=== PATIENT | male | born 1955 | race African-American/Black ===

== ENCOUNTER 2017-01-28 10:40 | Emergency (ER) | payer MEDICARE, MEDICAID ==
[~2017-01-28] VITALS: Ht 188 cm; Wt 91.0 kg
[~2017-01-28 10:40] MED LIST: ASPI81TA2 PO; ATOR20TA65 PO; COR6 PO; FURO20TA4 PO; GABA100C PO; LINA5TAB PO; LISI-604 PO; METF1000 PO; POTA20TA82 PO; SILV20CR15 TP
[2017-01-28 10:49] VITALS: BP 109/70
== END 2017-01-28 16:29 | disposition home or self-care (01) ==
LOC: ER 10:41
DX: S16.1XXA Strain of muscle, fascia and tendon at neck level, initial encounter (principal); E11.9 Type 2 diabetes mellitus without complications; J44.9 Chronic obstructive pulmonary disease, unspecified; F17.200 Nicotine dependence, unspecified, uncomplicated; I11.0 Hypertensive heart disease with heart failure; Z79.82 Long term (current) use of aspirin; Z79.899 Other long term (current) drug therapy; V49.60XA Unspecified car occupant injured in collision with unspecified motor vehicles in traffic accident, initial encounter; Y93.89 Activity, other specified; Y99.8 Other external cause status; Y92.410 Unspecified street and highway as the place of occurrence of the external cause
CPT/HCPCS: 72125; 99284

== ENCOUNTER 2018-06-26 17:37 | Inpatient (IN) | payer MEDICARE, MEDICAID ==
[~2018-06-26] VITALS: Ht 182.9 cm; Wt 98.4 kg
[~2018-06-26 17:37] MED LIST changes: +ASPI-1160 PO; -ASPI81TA2 PO; +SILV20CR13 TP; -SILV20CR15 TP
[2018-06-26] MEDS ORDERED: FUROSEMIDE 40MG/4ML VIAL IV ONE (18:15)
[2018-06-26] MEDS ORDERED: NITROGLYCERIN OINT 1GM/INCH UDPKT TD ONE (18:15)
[2018-06-26 19:06] LABS: HEMATOCRIT. 43.8 % (42.0-52.0); HEMOGLOBIN. 14.4 g/dL (14.0-18.0); MEAN CORPUSCULAR HEMOGLOBIN 27.2 pg (28.0-32.0); MEAN CORPUSCULAR VOLUME 82.8 fL (80.0-94.0); MEAN PLATELET VOLUME 8.9 fl (7.4-10.4); PLATELET 176 x1000/uL (130-400); RED BLOOD CELL COUNT 5.29 mill/uL (4.7-6.1); RED CELL DISTRIBUTION WIDTH 14.7 % (11.6-14.6)
[2018-06-26 19:14] LABS: CHLORIDE 102 mEq/L (98-107); ETHANOL BLOOD < 10 mg/dL
[2018-06-26 19:20] LABS: INR 1.1; PARTIAL THROMBOPLASTIN TIME 30.1 sec (23.4-31.0); PROTHROMBIN TIME 11.2 sec (9.1-11.1)
[2018-06-26 19:56] LABS: BG DEOXYHEMOGLOBIN 9.8 % (0.0-5.0); BG FRACTION INSPIRED OXYGEN 21; BG HCO3 ACT 24.7 mmol/L (22.0-26.0); BG METHEMOGLOBIN 0.3 % (0.0-1.5); BG OXYGEN SATURATION 90.1 % (92.0-98.5); BG OXYHEMOGLOBIN 88.9 % (94.0-97.0); BG PCO2 36.3 mmHg (35.0-45.0); BG PO2 54.2 mmHg (75.0-100.0); BG SAMPLE SITE LEFT RADIAL; BG TOTAL HEMOGLOBIN 14.4 g/dL (12.0-18.0); BG VENT MODE ROOM AIR
[2018-06-26] MEDS ORDERED: LEVOFLOXACIN 750MG PREMIX 150 ML IV ONE (20:15)
[2018-06-26] MEDS ORDERED: OSELTAMIVIR 75MG CAPSULE PO ONE (20:15)
[2018-06-26] MEDS ORDERED: VANCOMYCIN 1 G PREMIX 200 ML IV SCH (20:15)
[2018-06-26 21:20] LABS: PLATELET ESTIMATE NORMAL
[2018-06-26 22:01] LABS: *AMPHETAMINES SCREEN URINE NEGATIVE (NEGATIVE); *BARBITURATES SCREEN URINE NEGATIVE (NEGATIVE); *BENZODIAZEPINES SCREEN URINE NEGATIVE (NEGATIVE); *COCAINE SCREEN URINE NEGATIVE (NEGATIVE); CANNABINOID URINE SCREEN NEGATIVE (NEGATIVE); METHADONE URINE SCREEN NEGATIVE (NEGATIVE); OPIATES URINE SCREEN NEGATIVE (NEGATIVE); PHENCYCLIDINE URINE SCREEN NEGATIVE (NEGATIVE)
[2018-06-27] VITALS (7 sets, daily range): BP systolic 113–134; BP diastolic 62–85
[2018-06-27] MEDS ORDERED: GUAIFENESIN 200MG/10ML SUGAR FREE UDC PO PRN (02:15)
[2018-06-27] MEDS ORDERED: PIPERACILLIN/TAZ 3.375G PREMIX 50 ML IV SCH ×2 (02:15→05:00)
[2018-06-27] MEDS ORDERED: IPRATROPIUM/ALBUTEROL 0.5-3(2.5)MG/3ML NEB INH PRN (02:15)
[2018-06-27] MEDS: IPRATROPIUM/ALBUTEROL 0.5-3(2.5)MG/3ML NEB HHN SCH ×5 (04:22→19:48)
[2018-06-27] MEDS ORDERED: FUROSEMIDE 20MG/2ML VIAL IVP SCH (06:00)
[2018-06-27] MEDS: GABAPENTIN 300MG CAPSULE PO SCH ×3 (06:16→22:00)
[2018-06-27] MEDS: SODIUM CHLORIDE 0.9% INJ 3ML FLUSH IVF SCH ×3 (06:16→22:46)
[2018-06-27 06:46] LABS: BASOPHILS % 0.2 % (0.0-2.0); EOSINOPHILS % 0.6 % (0.0-5.0); HEMATOCRIT. 37.1 % (42.0-52.0); HEMOGLOBIN. 12.4 g/dL (14.0-18.0); LYMPHOCYTES % 7.1 % (20.0-50.0); MEAN CORPUSCULAR VOLUME 81.3 fL (80.0-94.0); MEAN PLATELET VOLUME 8.6 fl (7.4-10.4); MONOCYTES % 11.2 % (2.0-8.0); NEUTROPHILS % 80.9 % (40.0-76.0); PLATELET 150 x1000/uL (130-400); RED BLOOD CELL COUNT 4.57 mill/uL (4.7-6.1); RED CELL DISTRIBUTION WIDTH 14.8 % (11.6-14.6)
[2018-06-27 07:53] LABS: CHLORIDE 106 mEq/L (98-107)
[2018-06-27] MEDS: BUDESONIDE 0.5MG/2ML NEB HHN SCH ×2 (07:56→19:48)
[2018-06-27] MEDS: ASPIRIN 81MG TABLET PO SCH (08:59)
[2018-06-27] MEDS: CARVEDILOL 6.25 MG TABLET PO SCH ×2 (08:59→21:00)
[2018-06-27] MEDS: POTASSIUM CHLORIDE 20MEQ TABLET SR PO SCH (09:00)
[2018-06-27] MEDS: LISINOPRIL 20MG TABLET PO SCH ×3 (09:00→09:29)
[2018-06-27] MEDS: DOCUSATE SODIUM 100MG CAPSULE PO PRN (09:00)
[2018-06-27] MEDS: METFORMIN HCL 500MG TABLET PO SCH ×2 (09:04→17:50)
[2018-06-27] MEDS: ENOXAPARIN 40MG/0.4ML SYR SUBCUT SCH (10:38)
[2018-06-27] MEDS ORDERED: DEXTROSE 50% WATER 50ML SYRINGE IV PRN (11:45)
[2018-06-27] MEDS: BLOOD SUGAR DIAGNOSTIC STRIP TEST SCH ×3 (12:25→21:00)
[2018-06-27] MEDS: INSULIN LISPRO 100 UNITS/ML SUBCUT SCH ×3 (12:31→21:00)
[2018-06-27] MEDS: PREGABALIN 75MG CAPSULE PO SCH (15:08)
[2018-06-27] MEDS: ACETAMINOPHEN 325MG TABLET PO PRN (15:10)
[2018-06-27] MEDS ORDERED: POTASSIUM CHLORIDE 20MEQ TABLET SR PO NR (16:45)
[2018-06-27] MEDS: FUROSEMIDE 100MG/10ML VIAL IV SCH (17:20)
[2018-06-27] MEDS: PIPERACILLIN/TAZ 3.375G PREMIX 50 ML IV SCH ×2 (17:29→21:00)
[2018-06-27] MEDS: ATORVASTATIN CALCIUM 20MG TABLET PO SCH (21:00)
[2018-06-28] VITALS: BP 103/80
[2018-06-28] MEDS: IPRATROPIUM/ALBUTEROL 0.5-3(2.5)MG/3ML NEB HHN SCH ×6 (00:10→20:21)
[2018-06-28] MEDS: PIPERACILLIN/TAZ 3.375G PREMIX 50 ML IV SCH ×4 (03:00→21:30)
[2018-06-28 04:00] VITALS: BP 129/78
[2018-06-28] MEDS: GABAPENTIN 300MG CAPSULE PO SCH ×4 (04:14→21:50)
[2018-06-28] MEDS: SODIUM CHLORIDE 0.9% INJ 3ML FLUSH IVF SCH ×3 (04:14→21:30)
[2018-06-28] MEDS: BLOOD SUGAR DIAGNOSTIC STRIP TEST SCH ×4 (07:20→20:26)
[2018-06-28 07:58] LABS: BASOPHILS % 0.3 % (0.0-2.0); EOSINOPHILS % 1.1 % (0.0-5.0); HEMATOCRIT. 37.4 % (42.0-52.0); HEMOGLOBIN. 12.5 g/dL (14.0-18.0); LYMPHOCYTES % 10.4 % (20.0-50.0); MEAN CORPUSCULAR HEMOGLOBIN 27.4 pg (28.0-32.0); MEAN CORPUSCULAR VOLUME 81.6 fL (80.0-94.0); MEAN PLATELET VOLUME 8.7 fl (7.4-10.4); NEUTROPHILS % 76.2 % (40.0-76.0); PLATELET 168 x1000/uL (130-400); RED BLOOD CELL COUNT 4.58 mill/uL (4.7-6.1); RED CELL DISTRIBUTION WIDTH 14.6 % (11.6-14.6)
[2018-06-28 08:15] LABS: CHLORIDE 103 mEq/L (98-107)
[2018-06-28] MEDS: FUROSEMIDE 100MG/10ML VIAL IV SCH (08:26)
[2018-06-28 08:27] LABS: HDL CHOLESTEROL 32 mg/dL (40-59); LDL CHOLESTEROL 61 mg/dL (5-100)
[2018-06-28] MEDS: METFORMIN HCL 500MG TABLET PO SCH ×3 (08:27→17:50)
[2018-06-28] MEDS: PREGABALIN 75MG CAPSULE PO SCH ×3 (08:27→17:49)
[2018-06-28] MEDS: POTASSIUM CHLORIDE 20MEQ TABLET SR PO SCH (08:28)
[2018-06-28] MEDS: ASPIRIN 81MG TABLET PO SCH (08:29)
[2018-06-28] MEDS: CARVEDILOL 6.25 MG TABLET PO SCH ×2 (08:32→21:29)
[2018-06-28] MEDS: ENOXAPARIN 40MG/0.4ML SYR SUBCUT SCH (08:33)
[2018-06-28 08:37] VITALS: BP 124/76
[2018-06-28] MEDS: INSULIN LISPRO 100 UNITS/ML SUBCUT SCH ×5 (08:40→21:30)
[2018-06-28] MEDS: BUDESONIDE 0.5MG/2ML NEB HHN SCH ×2 (08:56→20:21)
[2018-06-28 12:14] VITALS: BP 127/77
[2018-06-28] MEDS ORDERED: LIDOCAINE HCL 1% 20ML VIAL (Pyxis) INJ ONE (14:38)
[2018-06-28] MEDS ORDERED: SODIUM BICARBONATE 4% (2.4MEQ) 5ML VIAL IV ONE (14:38)
[2018-06-28] MEDS ORDERED: VANCOMYCIN 2,000 MG in DEXT 5% WATER 500 ML IV SCH (15:00)
[2018-06-28 16:40] VITALS: BP 140/83
[2018-06-28 20:00] VITALS: BP 140/89
[2018-06-28] MEDS: ATORVASTATIN CALCIUM 20MG TABLET PO SCH (21:29)
[2018-06-29] VITALS (7 sets, daily range): BP systolic 121–139; BP diastolic 81–88
[2018-06-29] MEDS ORDERED: SODIUM CHLORIDE 0.45% 1,000 ML IV SCH
[2018-06-29] MEDS: ACETAMINOPHEN 325MG TABLET PO PRN (00:02)
[2018-06-29] MEDS: IPRATROPIUM/ALBUTEROL 0.5-3(2.5)MG/3ML NEB HHN SCH ×5 (00:27→21:26)
[2018-06-29] MEDS: PIPERACILLIN/TAZ 3.375G PREMIX 50 ML IV SCH ×4 (03:20→21:08)
[2018-06-29] MEDS: GABAPENTIN 300MG CAPSULE PO SCH ×3 (06:00→21:11)
[2018-06-29] MEDS: VANCOMYCIN 1 G PREMIX 200 ML IV SCH ×2 (06:20→17:57)
[2018-06-29] MEDS: SODIUM CHLORIDE 0.9% INJ 3ML FLUSH IVF SCH ×3 (06:21→21:19)
[2018-06-29] MEDS: BLOOD SUGAR DIAGNOSTIC STRIP TEST SCH ×4 (06:26→20:48)
[2018-06-29 06:27] LABS: HEMOGLOBIN 12.8 g/dL (14.0-18.0); MEAN CORPUSCULAR HEMOGLOBIN 27.5 pg (28.0-32.0); MEAN CORPUSCULAR VOLUME 81.6 fL (80.0-94.0); PLATELET 190 x1000/uL (130-400); RED BLOOD CELL COUNT 4.66 mill/uL (4.7-6.1); RED CELL DISTRIBUTION WIDTH 14.8 % (11.6-14.6)
[2018-06-29] MEDS ORDERED: GENTAMICIN SULF 40MG/ML 2ML VIAL ONE (07:10)
[2018-06-29] MEDS ORDERED: BACITRACIN 15GM TUBE TOP ONE (07:10)
[2018-06-29] MEDS ORDERED: LIDOCAINE HCL/PF 1% 10 MG/ML 5ML VIAL ONE (07:11)
[2018-06-29] MEDS ORDERED: BUPIVACAINE HCL/PF 0.5% (5MG/ML) 10ML ONE (07:11)
[2018-06-29] MEDS ORDERED: NORMAL SALINE 0.9% 10 ML SYR ONE ×2 (07:11→07:28)
[2018-06-29] MEDS ORDERED: BACITRACIN 50,000 UNITS/VIAL ONE ×2 (07:12→07:28)
[2018-06-29] MEDS: CARVEDILOL 6.25 MG TABLET PO SCH ×2 (07:31→21:07)
[2018-06-29] MEDS: INSULIN LISPRO 100 UNITS/ML SUBCUT SCH ×4 (07:31→21:18)
[2018-06-29] MEDS: FUROSEMIDE 100MG/10ML VIAL IV SCH (07:31)
[2018-06-29] MEDS: METFORMIN HCL 500MG TABLET PO SCH ×2 (07:31→17:50)
[2018-06-29] MEDS: ASPIRIN 81MG TABLET PO SCH (07:31)
[2018-06-29] MEDS: LISINOPRIL 20MG TABLET PO SCH ×2 (07:32→17:27)
[2018-06-29] MEDS: ENOXAPARIN 40MG/0.4ML SYR SUBCUT SCH (07:32)
[2018-06-29] MEDS: PREGABALIN 75MG CAPSULE PO SCH ×3 (07:32→17:56)
[2018-06-29] MEDS: POTASSIUM CHLORIDE 20MEQ TABLET SR PO SCH (07:32)
[2018-06-29] MEDS ORDERED: FENTANYL CITRATE/PF 50MCG/ML 2ML VIAL ONE ×2 (08:02→09:57)
[2018-06-29] MEDS ORDERED: PROPOFOL 200MG/20ML VIAL IV ONE (08:03)
[2018-06-29] MEDS ORDERED: MIDAZOLAM HCL 2 MG/2 ML VIAL ONE ×2 (08:03→09:57)
[2018-06-29] MEDS ORDERED: MEPERIDINE HCL/PF 25MG/ML CPJ IV PRN (08:30)
[2018-06-29] MEDS ORDERED: HYDROMORPHONE HCL/PF 2MG/ML CPJ IV PRN (08:30)
[2018-06-29] MEDS ORDERED: LABETALOL 5MG/ML SYR 20 MG/4 ML SYRINGE IV PRN (08:30)
[2018-06-29] MEDS ORDERED: ONDANSETRON HCL 4MG/2ML INJ IV PRN (08:30)
[2018-06-29] MEDS ORDERED: DEXAMETHASONE 4MG/ML 1ML VIAL ONE (08:34)
[2018-06-29 08:55] LABS: CHLORIDE 103 mEq/L (98-107)
[2018-06-29] MEDS ORDERED: LIDOCAINE HCL/PF 1% 2ML VIAL ONE (10:18)
[2018-06-29] MEDS: BUDESONIDE 0.5MG/2ML NEB HHN SCH ×2 (11:48→21:26)
[2018-06-29 12:54] LABS: BG BASE EXCESS 0.5 mmol/L (-2.0-2.0); BG DEOXYHEMOGLOBIN 7.5 % (0.0-5.0); BG HCO3 ACT 24.5 mmol/L (22.0-26.0); BG METHEMOGLOBIN 0.3 % (0.0-1.5); BG OXYGEN SATURATION 92.4 % (92.0-98.5); BG OXYHEMOGLOBIN 91.2 % (94.0-97.0); BG PCO2 37.6 mmHg (35.0-45.0); BG PH 7.432 (7.350-7.450); BG PO2 62.4 mmHg (75.0-100.0); BG SAMPLE SITE RIGHT BRACHIAL; BG TOTAL HEMOGLOBIN 13.7 g/dL (12.0-18.0); BG VENT MODE ROOM AIR
[2018-06-29] MEDS: ATORVASTATIN CALCIUM 20MG TABLET PO SCH (21:06)
[2018-06-29] MEDS: ENOXAPARIN 30MG/0.3ML SYR SUBCUT SCH (21:08)
[2018-06-29] MEDS ORDERED: INSULIN GLARGINE UD 100 UNITS/ML SYR SUBCUT SCH (22:00)
[2018-06-30] VITALS: BP 138/87
[2018-06-30] MEDS: ACETAMINOPHEN 325MG TABLET PO PRN (00:19)
[2018-06-30] MEDS: IPRATROPIUM/ALBUTEROL 0.5-3(2.5)MG/3ML NEB HHN SCH ×6 (00:53→16:00)
[2018-06-30] MEDS: PIPERACILLIN/TAZ 3.375G PREMIX 50 ML IV SCH ×3 (03:49→15:00)
[2018-06-30 04:00] VITALS: BP 122/74
[2018-06-30] MEDS: GABAPENTIN 300MG CAPSULE PO SCH ×2 (06:00→12:24)
[2018-06-30] MEDS: VANCOMYCIN 1 G PREMIX 200 ML IV SCH (06:09)
[2018-06-30] MEDS: SODIUM CHLORIDE 0.9% INJ 3ML FLUSH IVF SCH ×2 (06:09→14:00)
[2018-06-30] MEDS: BLOOD SUGAR DIAGNOSTIC STRIP TEST SCH ×3 (06:48→17:20)
[2018-06-30 07:38] LABS: BASOPHILS % 0.7 % (0.0-2.0); HEMATOCRIT. 38.1 % (42.0-52.0); HEMOGLOBIN. 12.9 g/dL (14.0-18.0); LYMPHOCYTES % 19.6 % (20.0-50.0); MEAN CORPUSCULAR HEMOGLOBIN 27.6 pg (28.0-32.0); MEAN PLATELET VOLUME 8.6 fl (7.4-10.4); MONOCYTES % 10.7 % (2.0-8.0); PLATELET 193 x1000/uL (130-400); RED CELL DISTRIBUTION WIDTH 14.5 % (11.6-14.6)
[2018-06-30] MEDS: METFORMIN HCL 500MG TABLET PO SCH ×2 (07:50→17:50)
[2018-06-30 07:59] LABS: CHLORIDE 103 mEq/L (98-107)
[2018-06-30 08:14] LABS: VANCOMYCIN TROUGH 16.1 ug/mL (5.0-10.0)
[2018-06-30 08:17] VITALS: BP 157/107
[2018-06-30] MEDS: BUDESONIDE 0.5MG/2ML NEB HHN SCH (08:25)
[2018-06-30] MEDS: ASPIRIN 81MG TABLET PO SCH (08:46)
[2018-06-30] MEDS: POTASSIUM CHLORIDE 20MEQ TABLET SR PO SCH (08:46)
[2018-06-30] MEDS: FUROSEMIDE 100MG/10ML VIAL IV SCH (08:46)
[2018-06-30] MEDS: LISINOPRIL 20MG TABLET PO SCH (08:47)
[2018-06-30] MEDS: CARVEDILOL 6.25 MG TABLET PO SCH (08:47)
[2018-06-30] MEDS: INSULIN LISPRO 100 UNITS/ML SUBCUT SCH ×3 (08:55→17:50)
[2018-06-30] MEDS: PREGABALIN 50 MG CAPSULE PO SCH ×3 (10:20→17:00)
[2018-06-30] MEDS: ENOXAPARIN 30MG/0.3ML SYR SUBCUT SCH (10:20)
[2018-06-30 11:02] VITALS: BP 125/81
[2018-06-30] MEDS: DOCUSATE SODIUM 100MG CAPSULE PO PRN (12:25)
== END 2018-06-30 18:11 | disposition home health service (06) | DRG 616 ==
LOC: ER 17:37 → 6WST 20:28 → EDBEDREQTM 20:34 → EDBEDREQ 20:34 → ENRESERV 22:25
PROVIDERS: ADMIT Internal Medicine; ATTEND Internal Medicine
PROC: 02HV33Z Insertion of Infusion Device into Superior Vena Cava, Percutaneous Approach (ICD-10-PCS; principal; 2018-06-28)
PROC: B5181ZA Fluoroscopy of Superior Vena Cava using Low Osmolar Contrast, Guidance (ICD-10-PCS; 2018-06-28)
PROC: 0Y6P0Z1 Detachment at Right 1st Toe, High, Open Approach (ICD-10-PCS; 2018-06-29)
PROC: 0JBQ0ZZ Excision of Right Foot Subcutaneous Tissue and Fascia, Open Approach (ICD-10-PCS; 2018-06-29)
DX: E11.621 Type 2 diabetes mellitus with foot ulcer (principal); J96.00 Acute respiratory failure, unspecified whether with hypoxia or hypercapnia; I50.43 Acute on chronic combined systolic (congestive) and diastolic (congestive) heart failure; E43 Unspecified severe protein-calorie malnutrition; E11.52 Type 2 diabetes mellitus with diabetic peripheral angiopathy with gangrene; I42.9 Cardiomyopathy, unspecified; M86.8X8 Other osteomyelitis, other site; R65.10 Systemic inflammatory response syndrome (SIRS) of non-infectious origin without acute organ dysfunction; I11.0 Hypertensive heart disease with heart failure; E78.5 Hyperlipidemia, unspecified; E11.21 Type 2 diabetes mellitus with diabetic nephropathy; E11.40 Type 2 diabetes mellitus with diabetic neuropathy, unspecified; E11.65 Type 2 diabetes mellitus with hyperglycemia; E78.00 Pure hypercholesterolemia, unspecified; E66.9 Obesity, unspecified; E11.69 Type 2 diabetes mellitus with other specified complication; F17.200 Nicotine dependence, unspecified, uncomplicated; L08.9 Local infection of the skin and subcutaneous tissue, unspecified; L97.519 Non-pressure chronic ulcer of other part of right foot with unspecified severity; M20.41 Other hammer toe(s) (acquired), right foot; M20.42 Other hammer toe(s) (acquired), left foot; Z91.19 Patient's noncompliance with other medical treatment and regimen; Z95.810 Presence of automatic (implantable) cardiac defibrillator; Z79.84 Long term (current) use of oral hypoglycemic drugs; Z79.899 Other long term (current) drug therapy; Z79.82 Long term (current) use of aspirin; Z71.6 Tobacco abuse counseling; Z68.29 Body mass index [BMI] 29.0-29.9, adult
CPT/HCPCS: 36415; 36569; 36600; 71045; 73620; 73630; 76937; 77001; 80048; 80061; 80202; 80305; 82375; 82805; 82962; 83036; 83605; 83735; 83880; 84443; 84484; 85027; 85651; 86140; 87070; 87077; 87186; 87804; 88305; 88311; 93005; 93970; 94640; 96365; 96367; 96375; 97162; 99291; A4216; C1725; G0482; J1100; J1580; J1650; J1815; J1940; J1956; J2250; J2405; J2543; J2704; J3010; J3370; J3490; J7050; J7060; J7620; J7626

== ENCOUNTER 2018-09-18 07:18 | Inpatient (IN) | payer MEDICARE, MEDICAID ==
[2018-09-18] VITALS (7 sets, daily range): BP systolic 120–159; BP diastolic 65–95
[~2018-09-18] VITALS: Ht 185.4 cm; Wt 95.4 kg
[2018-09-18] MEDS ORDERED: ALBUTEROL (0.083%) 2.5MG/3ML NEB HHN STA (07:27)
[2018-09-18] MEDS ORDERED: NITROGLYCERIN OINT 1GM/INCH UDPKT TD ONE (07:30)
[2018-09-18] MEDS ORDERED: FUROSEMIDE 40MG/4ML VIAL IV ONE (07:30)
[2018-09-18 08:06] LABS: BASOPHILS % 0.4 % (0.0-2.0); HEMATOCRIT. 53.2 % (42.0-52.0); HEMOGLOBIN. 17.7 g/dL (14.0-18.0); LYMPHOCYTES % 16.4 % (20.0-50.0); MEAN CORPUSCULAR HEMOGLOBIN 27.6 pg (28.0-32.0); MEAN CORPUSCULAR VOLUME 82.9 fL (80.0-94.0); MEAN PLATELET VOLUME 9.1 fl (7.4-10.4); NEUTROPHILS % 74.2 % (40.0-76.0); PLATELET 227 x1000/uL (130-400); RED BLOOD CELL COUNT 6.41 mill/uL (4.7-6.1); RED CELL DISTRIBUTION WIDTH 15.3 % (11.6-14.6)
[2018-09-18] MEDS ORDERED: VANCOMYCIN 1 G PREMIX 200 ML IV STA (08:15)
[2018-09-18] MEDS ORDERED: PIPERACILLIN/TAZOBACTAM 3.375GM/50ML PREMIX IV ONE (08:15)
[2018-09-18] MEDS ORDERED: PIPERACILLIN/TAZ 3.375G PREMIX 50 ML IV SCH (08:30)
[2018-09-18] MEDS ORDERED: ONDANSETRON HCL 4MG/2ML INJ IV ONE (08:45)
[2018-09-18 08:46] LABS: CHLORIDE 103 mEq/L (98-107)
[2018-09-18 08:47] LABS: CLARITY URINE CLOUDY (CLEAR); COLOR URINE YELLOW (YELLOW); KETONES URINE NEGATIVE (NEGATIVE); LEUKOCYTE ESTERASE URINE NEGATIVE (NEGATIVE); NITRITE URINE NEGATIVE (NEGATIVE); OCCULT BLOOD URINE 1+ (NEGATIVE); PH URINE 6.5 (4.5-8.0); PROTEIN URINE 3+ (NEGATIVE); UROBILINOGEN URINE 0.2 E.U./dL (0.2-1.0)
[2018-09-18] MEDS ORDERED: SODIUM CHLORIDE 0.9% 500 ML IV ONE (09:00)
[2018-09-18] MEDS ORDERED: OSELTAMIVIR 75MG CAPSULE PO SCH ×2 (10:02→21:00)
[2018-09-18] MEDS ORDERED: ALBUTEROL (0.083%) 2.5MG/3ML NEB HHN ONE (10:15)
[2018-09-18] MEDS ORDERED: PIPERACILLIN/TAZOBACTAM 3.375GM/50ML PREMIX IV SCH (13:45)
[2018-09-18] MEDS: ACETAMINOPHEN 325MG TABLET PO PRN ×2 (13:52→13:59)
[2018-09-18] MEDS ORDERED: LEVOFLOXACIN 250MG PREMIX 50 ML IV SCH (15:00)
[2018-09-18 15:33] LABS: *AMPHETAMINES SCREEN URINE NEGATIVE (NEGATIVE); *BARBITURATES SCREEN URINE NEGATIVE (NEGATIVE); *BENZODIAZEPINES SCREEN URINE NEGATIVE (NEGATIVE); *COCAINE SCREEN URINE PRESUMTIVE POSITIVE (NEGATIVE)
[2018-09-18 15:34] LABS: CANNABINOID URINE SCREEN NEGATIVE (NEGATIVE); METHADONE URINE SCREEN NEGATIVE (NEGATIVE); OPIATES URINE SCREEN NEGATIVE (NEGATIVE); PHENCYCLIDINE URINE SCREEN NEGATIVE (NEGATIVE)
[2018-09-18] MEDS: ASPIRIN 81MG TABLET PO SCH (15:55)
[2018-09-18] MEDS: PANTOPRAZOLE 40MG DR TABLET PO SCH ×2 (15:55→20:29)
[2018-09-18] MEDS: ENOXAPARIN 40MG/0.4ML SYR SUBCUT SCH (15:56)
[2018-09-18] MEDS: PIPERACILLIN/TAZ 3.375G PREMIX 50 ML IV SCH ×2 (16:28→22:09)
[2018-09-18] MEDS: FUROSEMIDE 40MG/4ML VIAL IVP SCH (16:29)
[2018-09-18] MEDS: CARVEDILOL 6.25 MG TABLET PO SCH (20:29)
[2018-09-18] MEDS: LISINOPRIL 20MG TABLET PO SCH (20:29)
[2018-09-18] MEDS: ATORVASTATIN CALCIUM 20MG TABLET PO SCH (20:29)
[2018-09-18] MEDS ORDERED: DOCUSATE SODIUM 250MG CAPSULE PO PRN (20:30)
[2018-09-18] MEDS ORDERED: ALBUTEROL (0.083%) 2.5MG/3ML NEB HHN PRN (20:30)
[2018-09-18] MEDS: ALBUTEROL (0.083%) 2.5MG/3ML NEB HHN SCH (21:26)
[2018-09-18] MEDS: MORPHINE SULFATE 4 MG/ML CPJ (NOT FOR IM USE) IV PRN (22:13)
[2018-09-19] VITALS (12 sets, daily range): BP systolic 102–156; BP diastolic 40–87
[2018-09-19] MEDS: ALBUTEROL (0.083%) 2.5MG/3ML NEB HHN SCH ×4 (02:16→19:50)
[2018-09-19] MEDS: PIPERACILLIN/TAZ 3.375G PREMIX 50 ML IV SCH ×3 (05:23→22:01)
[2018-09-19] MEDS: ACETAMINOPHEN 325MG TABLET PO PRN (05:23)
[2018-09-19] MEDS: PANTOPRAZOLE 40MG DR TABLET PO SCH (06:13)
[2018-09-19 06:23] LABS: CHLORIDE 105 mEq/L (98-107)
[2018-09-19 06:26] LABS: HEMATOCRIT. 46.1 % (42.0-52.0); HEMOGLOBIN. 15.3 g/dL (14.0-18.0); MEAN CORPUSCULAR HEMOGLOBIN 27.4 pg (28.0-32.0); MEAN CORPUSCULAR VOLUME 82.4 fL (80.0-94.0); PLATELET 183 x1000/uL (130-400); RED CELL DISTRIBUTION WIDTH 15.8 % (11.6-14.6)
[2018-09-19 06:30] LABS: LDL CHOLESTEROL 82 mg/dL (5-100)
[2018-09-19 06:31] LABS: HDL CHOLESTEROL 52 mg/dL (40-59)
[2018-09-19] MEDS: CARVEDILOL 6.25 MG TABLET PO SCH ×2 (09:21→20:16)
[2018-09-19] MEDS: FUROSEMIDE 40MG/4ML VIAL IVP SCH (09:21)
[2018-09-19] MEDS: ASPIRIN 81MG TABLET PO SCH (09:21)
[2018-09-19] MEDS: LISINOPRIL 20MG TABLET PO SCH ×2 (09:21→20:18)
[2018-09-19] MEDS: ENOXAPARIN 40MG/0.4ML SYR SUBCUT SCH (09:22)
[2018-09-19] MEDS ORDERED: LEVOFLOXACIN 500MG PREMIX 100 ML IV SCH (15:00)
[2018-09-19] MEDS ORDERED: FUROSEMIDE 40MG/4ML VIAL IVP SCH (15:15)
[2018-09-19] MEDS ORDERED: DEXTROSE 50% WATER 50ML SYRINGE IV PRN ×2 (19:30)
[2018-09-19] MEDS: MORPHINE SULFATE 4 MG/ML CPJ (NOT FOR IM USE) IV PRN (19:46)
[2018-09-19] MEDS: INSULIN LISPRO 100 UNITS/ML SUBCUT SCH (19:52)
[2018-09-19] MEDS: ATORVASTATIN CALCIUM 20MG TABLET PO SCH (20:14)
[2018-09-19] MEDS: FAMOTIDINE 20MG TABLET PO SCH (20:15)
[2018-09-19] MEDS: BLOOD SUGAR DIAGNOSTIC STRIP TEST SCH (20:16)
[2018-09-19 20:22] LABS: PLATELET ESTIMATE NORMAL
[2018-09-19] MEDS ORDERED: INS NPH/REG HM 70-30 100 UNITS/ML 10ML VIAL (HUMULIN 70-30) SUBCUT NR (22:30)
[2018-09-20] VITALS: BP 106/52
[2018-09-20 02:00] VITALS: BP 127/72
[2018-09-20] MEDS: ALBUTEROL (0.083%) 2.5MG/3ML NEB HHN SCH ×2 (02:00→08:33)
[2018-09-20 04:00] VITALS: BP 129/81
[2018-09-20] MEDS: PIPERACILLIN/TAZ 3.375G PREMIX 50 ML IV SCH (05:45)
[2018-09-20 06:00] VITALS: BP 118/73
[2018-09-20] MEDS: BLOOD SUGAR DIAGNOSTIC STRIP TEST SCH (06:43)
[2018-09-20 06:45] LABS: BASOPHILS % 0.2 % (0.0-2.0); EOSINOPHILS % 0.5 % (0.0-5.0); HEMATOCRIT. 45.6 % (42.0-52.0); HEMOGLOBIN. 15.1 g/dL (14.0-18.0); LYMPHOCYTES % 22.6 % (20.0-50.0); MEAN CORPUSCULAR HEMOGLOBIN 27.4 pg (28.0-32.0); MEAN CORPUSCULAR VOLUME 82.7 fL (80.0-94.0); MEAN PLATELET VOLUME 9.2 fl (7.4-10.4); MONOCYTES % 13.8 % (2.0-8.0); NEUTROPHILS % 62.9 % (40.0-76.0); PLATELET 168 x1000/uL (130-400); RED BLOOD CELL COUNT 5.51 mill/uL (4.7-6.1); RED CELL DISTRIBUTION WIDTH 15.4 % (11.6-14.6)
[2018-09-20 06:58] LABS: CHLORIDE 101 mEq/L (98-107)
[2018-09-20] MEDS: ASPIRIN 81MG TABLET PO SCH (07:58)
[2018-09-20] MEDS: INSULIN LISPRO 100 UNITS/ML SUBCUT SCH (07:58)
[2018-09-20] MEDS: ENOXAPARIN 40MG/0.4ML SYR SUBCUT SCH (07:58)
[2018-09-20] MEDS: FAMOTIDINE 20MG TABLET PO SCH (07:59)
[2018-09-20] MEDS: FUROSEMIDE 40MG/4ML VIAL IVP SCH (07:59)
[2018-09-20 08:00] VITALS: BP 107/69
[2018-09-20] MEDS: CARVEDILOL 6.25 MG TABLET PO SCH (08:10)
[2018-09-20] MEDS: LISINOPRIL 20MG TABLET PO SCH (08:10)
[2018-09-20] MEDS ORDERED: OSELTAMIVIR 75MG CAPSULE PO SCH (21:00)
== END 2018-09-20 10:19 | disposition left against medical advice (07) | DRG 291 ==
LOC: ER 07:22 → 3WST 08:36 → EDBEDREQ 08:38 → EDBEDREQTM 08:38 → EDBEDREQSVC 09:21 → EDBEDREQ 09:21 → ENRESERV 10:36
PROVIDERS: ADMIT Internal Medicine; ATTEND Internal Medicine
PROC: 5A09357 Assistance with Respiratory Ventilation, Less than 24 Consecutive Hours, Continuous Positive Airway Pressure (ICD-10-PCS; principal; 2018-09-18)
DX: I11.0 Hypertensive heart disease with heart failure (principal); J10.00 Influenza due to other identified influenza virus with unspecified type of pneumonia; I50.9 Heart failure, unspecified; Z53.21 Procedure and treatment not carried out due to patient leaving prior to being seen by health care provider; F19.10 Other psychoactive substance abuse, uncomplicated; M19.90 Unspecified osteoarthritis, unspecified site; E11.9 Type 2 diabetes mellitus without complications; Z95.810 Presence of automatic (implantable) cardiac defibrillator; Z79.82 Long term (current) use of aspirin; Z79.899 Other long term (current) drug therapy; Z79.84 Long term (current) use of oral hypoglycemic drugs
CPT/HCPCS: 36415; 71045; 80061; 80305; 82962; 83605; 83880; 84443; 84484; 85007; 85027; 87804; 93005; 94640; 94660; 96365; 96375; 99285; J1650; J1815; J1940; J1956; J2270; J2405; J2543; J3370; J7611

== ENCOUNTER 2018-10-11 11:21 | Day surgery (SDC) | payer MEDICARE, MEDICAID ==
[~2018-10-11] VITALS: Ht 182.9 cm; Wt 94.3 kg
[2018-10-11] MEDS ORDERED: LIDOCAINE HCL 1% 20ML VIAL (Pyxis) INJ ONE (11:34)
[2018-10-11] MEDS ORDERED: TRIAMCINOLONE ACETONIDE 40MG/ML 1ML VIAL ONE (11:35)
[2018-10-11] MEDS ORDERED: DEXAMETHASONE 4MG/ML 1ML VIAL ONE (11:35)
[2018-10-11] MEDS ORDERED: GENTAMICIN SULF 40MG/ML 2ML VIAL ONE (11:42)
[2018-10-11] MEDS ORDERED: BACITRACIN 15GM TUBE TOP ONE (11:43)
[2018-10-11] MEDS ORDERED: BUPIVACAINE HCL/PF 0.5% (5MG/ML) 10ML ONE ×2 (11:43→13:13)
[2018-10-11] MEDS ORDERED: PREG100C PO (11:48)
[2018-10-11] MEDS ORDERED: SODIUM CHLORIDE 0.9% 1,000 ML IV SCH (12:30)
[2018-10-11] MEDS ORDERED: DEXT 5%/0.45% NACL 1000ML 1,000 ML IV SCH (12:45)
[2018-10-11 12:50] LABS: BASOPHILS % 0.5 % (0.0-2.0); EOSINOPHILS % 0.9 % (0.0-5.0); HEMATOCRIT. 44.5 % (42.0-52.0); HEMOGLOBIN. 14.9 g/dL (14.0-18.0); LYMPHOCYTES % 37.3 % (20.0-50.0); MEAN CORPUSCULAR HEMOGLOBIN 27.8 pg (28.0-32.0); MEAN CORPUSCULAR VOLUME 83.3 fL (80.0-94.0); MEAN PLATELET VOLUME 8.5 fl (7.4-10.4); MONOCYTES % 8.1 % (2.0-8.0); NEUTROPHILS % 53.2 % (40.0-76.0); PLATELET 105 x1000/uL (130-400); RED BLOOD CELL COUNT 5.35 mill/uL (4.7-6.1); RED CELL DISTRIBUTION WIDTH 15.3 % (11.6-14.6)
[2018-10-11 12:55] LABS: CHLORIDE 110 mEq/L (98-107)
[2018-10-11 12:57] LABS: PARTIAL THROMBOPLASTIN TIME 23.7 sec (23.4-31.0); PROTHROMBIN TIME 10.4 sec (9.1-11.1)
[2018-10-11] MEDS ORDERED: FURO20TA4 PO (13:06)
[2018-10-11] MEDS ORDERED: INSU100I28 SQ (13:07)
[2018-10-11] MEDS ORDERED: MECL12.584 PO (13:09)
[2018-10-11] MEDS ORDERED: MAGN250T29 PO (13:09)
[2018-10-11] MEDS ORDERED: FENTANYL CITRATE/PF 50MCG/ML 2ML VIAL ONE (13:49)
[2018-10-11] MEDS ORDERED: PROPOFOL 200MG/20ML VIAL IV ONE (13:49)
[2018-10-11] MEDS ORDERED: MIDAZOLAM HCL 2 MG/2 ML VIAL ONE (13:49)
[2018-10-11] MEDS ORDERED: DEXTROSE 50% WATER 50ML SYRINGE IV ONE (14:09)
[2018-10-11] MEDS ORDERED: CEFAZOLIN SODIUM 1000MG/VIAL ONE (14:35)
[2018-10-11] MEDS ORDERED: MEPERIDINE HCL/PF 25MG/ML CPJ IV PRN (15:15)
[2018-10-11] MEDS ORDERED: MORPHINE SULFATE 4 MG/ML CPJ (NOT FOR IM USE) IV PRN (15:15)
[2018-10-11] MEDS ORDERED: HYDROMORPHONE HCL/PF 2MG/ML CPJ IV PRN (15:15)
[2018-10-11] MEDS ORDERED: ONDANSETRON HCL 4MG/2ML INJ IV PRN (15:15)
[2018-10-11] MEDS ORDERED: FENTANYL CITRATE/PF 50MCG/ML 2ML VIAL IV PRN (15:15)
[2018-10-11] MEDS ORDERED: METOCLOPRAMIDE HCL 10MG/2ML VIAL ONE (15:17)
[2018-10-11] MEDS ORDERED: PHENYLEPHRINE HCL 10 MG/ML 1ML (IV VIAL) IV ONE (15:17)
== END 2018-10-11 16:30 | disposition home or self-care (01) ==
LOC: OR 11:21
PROVIDERS: ATTEND Podiatrist Foot & Ankle Surgery
DX: M20.5X1 Other deformities of toe(s) (acquired), right foot (principal); M20.5X2 Other deformities of toe(s) (acquired), left foot; E11.42 Type 2 diabetes mellitus with diabetic polyneuropathy; F32.9 Major depressive disorder, single episode, unspecified; F03.90 Unspecified dementia, unspecified severity, without behavioral disturbance, psychotic disturbance, mood disturbance, and anxiety; I11.0 Hypertensive heart disease with heart failure; I50.9 Heart failure, unspecified
CPT/HCPCS: 28285; 36415; 73660; 80048; 82962; 85025; 85610; 85730; 88304; 88311; 93005; C1713; J0690; J1100; J1580; J2250; J2370; J2405; J2704; J2765; J3010; J3490; J3301

== ENCOUNTER 2018-12-14 11:00 | Emergency (ER) | payer MEDICARE, MEDICAID ==
[~2018-12-14] VITALS: Ht 185.4 cm; Wt 92.0 kg
[~2018-12-14 11:00] MED LIST changes: -GABA100C PO; +INSU100I28 SQ; -LINA5TAB PO; +MAGN250T29 PO; +MECL12.584 PO; -METF1000 PO; +PREG100C PO; -SILV20CR13 TP
[2018-12-14 12:04] LABS: HEMATOCRIT. 46.2 % (42.0-52.0); HEMOGLOBIN. 15.5 g/dL (14.0-18.0); MEAN CORPUSCULAR HEMOGLOBIN 27.8 pg (28.0-32.0); MEAN CORPUSCULAR VOLUME 82.7 fL (80.0-94.0); MEAN PLATELET VOLUME 9.2 fl (7.4-10.4); RED BLOOD CELL COUNT 5.59 mill/uL (4.7-6.1); RED CELL DISTRIBUTION WIDTH 15.5 % (11.6-14.6)
[2018-12-14 12:07] LABS: CHLORIDE 107 mEq/L (98-107)
[2018-12-14 12:08] LABS: PROTHROMBIN TIME 10.5 sec (9.6-11.0)
[2018-12-14 12:30] LABS: PLATELET ESTIMATE NORMAL
[2018-12-14 12:31] LABS: PLATELET 135 x1000/uL (130-400)
[2018-12-14] MEDS ORDERED: FUROSEMIDE 40MG/4ML VIAL IVP NR (13:00)
[2018-12-14] MEDS ORDERED: IBUPROFEN 600MG TABLET PO ONE (13:15)
[2018-12-14] MEDS ORDERED: AZITHROMYCIN 500 MG in DEXT 5% WATER 250 ML IV SCH (13:30)
[2018-12-14] MEDS ORDERED: CEFTRIAXONE 1 G PREMIX 50 ML IV ONE (13:30)
[2018-12-14] MEDS ORDERED: ONDANSETRON HCL 4MG/2ML INJ IV ONE (13:45)
[2018-12-14 16:26] VITALS: BP 133/71
== END 2018-12-14 16:31 | disposition left against medical advice (07) ==
LOC: ER 11:00 → EDBEDREQ 13:34 → EDBEDREQTM 13:34 → ER 16:31 → CANBEDREQ 20:13
DX: I11.0 Hypertensive heart disease with heart failure (principal); I50.9 Heart failure, unspecified; E11.9 Type 2 diabetes mellitus without complications; J90 Pleural effusion, not elsewhere classified; Z95.0 Presence of cardiac pacemaker; Z79.82 Long term (current) use of aspirin; Z79.4 Long term (current) use of insulin; Z79.899 Other long term (current) drug therapy
CPT/HCPCS: 36415; 71045; 80053; 83880; 84484; 85025; 85610; 87040; 93005; 96365; 96367; 96375; 99284; J0456; J0696; J1940; J2405; J7060

== ENCOUNTER 2019-02-04 01:02 | Emergency (ER) | payer MEDICARE, MEDICAID ==
[~2019-02-04] VITALS: Ht 188 cm; Wt 98.0 kg
[2019-02-04 01:28] VITALS: BP 127/97
[2019-02-04] MEDS ORDERED: DIPHENHYDRAMINE 50MG CAPSULE PO ONE (01:30)
== END 2019-02-04 03:12 | disposition home or self-care (01) ==
LOC: ER 01:02
DX: L30.9 Dermatitis, unspecified (principal); R20.8 Other disturbances of skin sensation; I11.0 Hypertensive heart disease with heart failure; I50.9 Heart failure, unspecified; E11.9 Type 2 diabetes mellitus without complications; F17.200 Nicotine dependence, unspecified, uncomplicated; Z98.890 Other specified postprocedural states; Z79.899 Other long term (current) drug therapy; Z95.0 Presence of cardiac pacemaker; Z79.82 Long term (current) use of aspirin
CPT/HCPCS: 93005; 99283; Q0163

== ENCOUNTER → 2019-08-19 | Emergency (ER) | payer MEDICARE, MEDICAID ==
[~2019-08-19] VITALS: Ht 185.4 cm; Wt 91.0 kg
[~2019-08-19] MED LIST changes: +MECL-183 PO; -MECL12.584 PO
[2019-08-19 11:44] VITALS: BP 114/72
== END | disposition left against medical advice (07) ==
LOC: ER 11:41
DX: R10.9 Unspecified abdominal pain (principal); Z53.21 Procedure and treatment not carried out due to patient leaving prior to being seen by health care provider
CPT/HCPCS: 93005

== ENCOUNTER 2020-07-16 16:11 | Emergency (ER) | payer MEDICARE, MEDICAID ==
[~2020-07-16] VITALS: Ht 182.9 cm; Wt 108.0 kg
[2020-07-16] MEDS ORDERED: ASPIRIN 81MG TABLET PO ONE (16:45)
[2020-07-16] MEDS ORDERED: FUROSEMIDE 40MG/4ML VIAL IV ONE (16:45)
[2020-07-16] MEDS ORDERED: NITROGLYCERIN OINT 1GM/INCH UDPKT TD ONE (16:45)
[2020-07-16 17:30] LABS: BASOPHILS % 0.6 % (0.0-2.0); EOSINOPHILS % 1.9 % (0.0-5.0); HEMATOCRIT. 42.9 % (42.0-52.0); HEMOGLOBIN. 14.2 g/dL (14.0-18.0); LYMPHOCYTES % 32.6 % (20.0-50.0); MEAN CORPUSCULAR HEMOGLOBIN 27.5 pg (28.0-32.0); MEAN CORPUSCULAR VOLUME 82.9 fL (80.0-94.0); MEAN PLATELET VOLUME 9.2 fl (7.4-10.4); MONOCYTES % 7.9 % (2.0-8.0); PLATELET 138 x1000/uL (130-400); RED BLOOD CELL COUNT 5.17 mill/uL (4.7-6.1)
[2020-07-16 17:34] LABS: CHLORIDE 114 mEq/L (98-107)
[2020-07-16 17:37] LABS: PARTIAL THROMBOPLASTIN TIME 28.8 sec (23.4-31.0); PROTHROMBIN TIME 10.9 sec (9.6-11.0)
[2020-07-16 18:04] LABS: BG BASE EXCESS -0.2 mmol/L (-2.0-2.0); BG CARBOXYHEMOGLOBIN 3.2 % (0.5-1.5); BG DEOXYHEMOGLOBIN 3.3 % (0.0-5.0); BG FRACTION INSPIRED OXYGEN 28; BG HCO3 ACT 25.2 mmol/L (22.0-26.0); BG METHEMOGLOBIN 0.2 % (0.0-1.5); BG OXYGEN SATURATION 96.6 % (92.0-98.5); BG OXYHEMOGLOBIN 93.3 % (94.0-97.0); BG PCO2 43.8 mmHg (35.0-45.0); BG PH 7.378 (7.350-7.450); BG PO2 87.2 mmHg (75.0-100.0); BG SAMPLE SITE RIGHT RADIAL; BG TOTAL HEMOGLOBIN 15.2 g/dL (12.0-18.0); BG VENT MODE NASAL CANNULA
[2020-07-16] MEDS ORDERED: VANCOMYCIN 1 G PREMIX 200 ML IV ONE (18:15)
[2020-07-16] MEDS ORDERED: PIPERACILLIN/TAZ 3.375G PREMIX 50 ML IV ONE (18:15)
[2020-07-16 18:40] VITALS: BP 126/76
== END 2020-07-16 18:43 | disposition left against medical advice (07) ==
LOC: ER 16:11
DX: I11.0 Hypertensive heart disease with heart failure (principal); R06.02 Shortness of breath; I50.9 Heart failure, unspecified; E11.9 Type 2 diabetes mellitus without complications; Z86.718 Personal history of other venous thrombosis and embolism; Z95.0 Presence of cardiac pacemaker; Z79.01 Long term (current) use of anticoagulants; Z79.82 Long term (current) use of aspirin; Z79.4 Long term (current) use of insulin
CPT/HCPCS: 36415; 36600; 71045; 80053; 82375; 82805; 83605; 83880; 84484; 85025; 85610; 85730; 87040; 96374; 99284; J1940; J2543; J3370

== ENCOUNTER 2020-11-20 11:11 | Emergency (ER) | payer MEDICARE, MEDICAID ==
[~2020-11-20] VITALS: Ht 188 cm; Wt 98.0 kg
[~2020-11-20 11:11] MED LIST changes: -FURO20TA4 PO; -LISI-604 PO; +LISI20TA31 PO; -MECL-183 PO; +MECL-217 PO
[2020-11-20] MEDS ORDERED: ASPIRIN 81MG TABLET PO ONE (11:45)
[2020-11-20 12:01] LABS: BASOPHILS % 0.5 % (0.0-2.0); EOSINOPHILS % 1.2 % (0.0-5.0); HEMATOCRIT. 44.5 % (42.0-52.0); HEMOGLOBIN. 14.7 g/dL (14.0-18.0); LYMPHOCYTES % 23.2 % (20.0-50.0); MEAN CORPUSCULAR HEMOGLOBIN 27.3 pg (28.0-32.0); MEAN CORPUSCULAR VOLUME 82.3 fL (80.0-94.0); MEAN PLATELET VOLUME 9.1 fl (7.4-10.4); MONOCYTES % 8.5 % (2.0-8.0); NEUTROPHILS % 66.6 % (40.0-76.0); PLATELET 148 x1000/uL (130-400); RED BLOOD CELL COUNT 5.41 mill/uL (4.7-6.1); RED CELL DISTRIBUTION WIDTH 16.2 % (11.6-14.6)
[2020-11-20 12:11] LABS: CHLORIDE 110 mEq/L (98-107)
[2020-11-20] MEDS ORDERED: FUROSEMIDE 40MG/4ML VIAL IVP ONE (13:00)
[2020-11-20 13:30] VITALS: BP 148/87
== END 2020-11-20 14:45 | disposition left against medical advice (07) ==
LOC: ER 11:11 → EDBEDREQ 12:49 → EDBEDREQTM 13:14 → ER 14:45 → CANBEDREQ 15:10 → SUPCPDRO 15:52
DX: I42.9 Cardiomyopathy, unspecified (principal); R06.03 Acute respiratory distress; J81.1 Chronic pulmonary edema; E87.70 Fluid overload, unspecified; N40.0 Benign prostatic hyperplasia without lower urinary tract symptoms; E11.9 Type 2 diabetes mellitus without complications; I11.0 Hypertensive heart disease with heart failure; I50.9 Heart failure, unspecified; Z79.899 Other long term (current) drug therapy; Z98.890 Other specified postprocedural states; Z95.810 Presence of automatic (implantable) cardiac defibrillator; Z79.4 Long term (current) use of insulin; Z79.82 Long term (current) use of aspirin
CPT/HCPCS: 36415; 71045; 80053; 83880; 84484; 85025; 93005; 96374; 99291; J1940; 99285

== ENCOUNTER 2021-09-30 12:28 | Emergency (ER) | payer MEDICARE, MEDICAID ==
[~2021-09-30] VITALS: Ht 172.7 cm; Wt 89.0 kg
[2021-09-30 12:41] VITALS: BP 137/87
== END 2021-09-30 14:12 | disposition left against medical advice (07) ==
LOC: ER 12:28
DX: R06.09 Other forms of dyspnea (principal); I11.0 Hypertensive heart disease with heart failure; I50.9 Heart failure, unspecified; E11.9 Type 2 diabetes mellitus without complications; Z85.46 Personal history of malignant neoplasm of prostate; Z79.4 Long term (current) use of insulin; Z79.82 Long term (current) use of aspirin
CPT/HCPCS: 99281

== ENCOUNTER 2021-10-01 11:16 | Emergency (ER) | payer MEDICARE, MEDICAID ==
[~2021-10-01] VITALS: Ht 182.9 cm; Wt 100.0 kg
[2021-10-01] MEDS ORDERED: NITROGLYCERIN OINT 1GM/INCH UDPKT TD ONE (12:30)
[2021-10-01] MEDS ORDERED: FUROSEMIDE 40MG/4ML VIAL IV ONE (12:30)
[2021-10-01 12:52] LABS: BASOPHILS % 0.6 % (0.0-2.0); EOSINOPHILS % 0.7 % (0.0-5.0); HEMATOCRIT. 43.8 % (42.0-52.0); HEMOGLOBIN. 14.7 g/dL (14.0-18.0); LYMPHOCYTES % 17.7 % (20.0-50.0); MEAN CORPUSCULAR HEMOGLOBIN 27.2 pg (28.0-32.0); MEAN PLATELET VOLUME 8.8 fl (7.4-10.4); MONOCYTES % 9.7 % (2.0-8.0); NEUTROPHILS % 71.3 % (40.0-76.0); PLATELET 131 x1000/uL (130-400); RED BLOOD CELL COUNT 5.41 mill/uL (4.7-6.1); RED CELL DISTRIBUTION WIDTH 16.4 % (11.6-14.6)
[2021-10-01 12:58] LABS: CHLORIDE 113 mEq/L (98-107)
[2021-10-01 13:03] LABS: PROTHROMBIN TIME 11.1 sec (9.6-11.0)
[2021-10-01 13:16] VITALS: BP 146/87
== END 2021-10-01 14:53 | disposition left against medical advice (07) ==
LOC: ER 11:16 → EDBEDREQTM 13:33 → EDBEDREQ 13:33 → ER 14:53 → CANBEDREQ 19:49
DX: I11.0 Hypertensive heart disease with heart failure (principal); I50.9 Heart failure, unspecified; N28.9 Disorder of kidney and ureter, unspecified; F17.290 Nicotine dependence, other tobacco product, uncomplicated; E11.9 Type 2 diabetes mellitus without complications
CPT/HCPCS: 36415; 71045; 80053; 83880; 84484; 85025; 96374; 99284; 99406

== ENCOUNTER 2021-10-02 22:05 | Inpatient (IN) | payer MEDICARE, MEDICAID ==
[~2021-10-02] VITALS: Ht 190.5 cm; Wt 100.0 kg
[2021-10-02] MEDS ORDERED: LORAZEPAM 2MG/ML CPJ IV ONE (22:30)
[2021-10-02 22:37] LABS: BASOPHILS % 0.6 % (0.0-2.0); EOSINOPHILS % 0.7 % (0.0-5.0); HEMATOCRIT. 38.7 % (42.0-52.0); HEMOGLOBIN. 12.9 g/dL (14.0-18.0); LYMPHOCYTES % 14.3 % (20.0-50.0); MEAN CORPUSCULAR HEMOGLOBIN 26.9 pg (28.0-32.0); MEAN PLATELET VOLUME 8.5 fl (7.4-10.4); MONOCYTES % 9.9 % (2.0-8.0); NEUTROPHILS % 74.5 % (40.0-76.0); PLATELET 122 x1000/uL (130-400); RED BLOOD CELL COUNT 4.78 mill/uL (4.7-6.1)
[2021-10-02 22:45] LABS: CHLORIDE 114 mEq/L (98-107)
[2021-10-02] MEDS ORDERED: FUROSEMIDE 40MG/4ML VIAL IVP ONE (23:15)
[2021-10-03] MEDS ORDERED: ACETAMINOPHEN 325MG TABLET PO PRN (08:30)
[2021-10-03] MEDS ORDERED: DEXTROSE 50% WATER 50ML SYRINGE IV PRN (08:45)
[2021-10-03] MEDS: TRAMADOL 50MG TABLET PO PRN ×2 (08:59→16:34)
[2021-10-03] MEDS: ONDANSETRON HCL 4MG/2ML INJ IV PRN ×2 (08:59→16:34)
[2021-10-03] MEDS ORDERED: FUROSEMIDE 40MG/4ML VIAL IVP SCH ×2 (09:00→18:00)
[2021-10-03] MEDS ORDERED: ASPIRIN 81MG TABLET PO SCH (09:00)
[2021-10-03] MEDS ORDERED: NALOXONE HCL 0.4MG/ML VIAL IV PRN (09:00)
[2021-10-03] MEDS ORDERED: CARVEDILOL 3.125 MG TABLET PO SCH (09:15)
[2021-10-03] MEDS: BLOOD SUGAR DIAGNOSTIC STRIP TEST SCH ×2 (11:41→16:37)
[2021-10-03] MEDS: INSULIN LISPRO 100 UNITS/ML SUBCUT SCH ×2 (11:41→16:37)
[2021-10-03] MEDS ORDERED: LORAZEPAM 0.5MG TABLET PO ONE (16:30)
[2021-10-03] MEDS ORDERED: IPRATROPIUM/ALBUTEROL 0.5-3(2.5)MG/3ML NEB HHN PRN (17:00)
[2021-10-03 19:45] VITALS: BP 139/88
== END 2021-10-04 00:13 | disposition left against medical advice (07) | DRG 291 ==
LOC: ER 22:05 → MICUSO 23:11 → 6WST 10-03 20:19
PROVIDERS: ADMIT Internal Medicine; ATTEND Internal Medicine
PROC: 5A09357 Assistance with Respiratory Ventilation, Less than 24 Consecutive Hours, Continuous Positive Airway Pressure (ICD-10-PCS; principal; 2021-10-02)
PROC: 5A09357 Assistance with Respiratory Ventilation, Less than 24 Consecutive Hours, Continuous Positive Airway Pressure (ICD-10-PCS; 2021-10-03)
DX: I11.0 Hypertensive heart disease with heart failure (principal); I50.23 Acute on chronic systolic (congestive) heart failure; J96.01 Acute respiratory failure with hypoxia; N17.0 Acute kidney failure with tubular necrosis; E44.0 Moderate protein-calorie malnutrition; I42.0 Dilated cardiomyopathy; E11.9 Type 2 diabetes mellitus without complications; I49.3 Ventricular premature depolarization; R07.89 Other chest pain; Z20.822 Contact with and (suspected) exposure to COVID-19; Z53.29 Procedure and treatment not carried out because of patient's decision for other reasons; I25.10 Atherosclerotic heart disease of native coronary artery without angina pectoris; F17.210 Nicotine dependence, cigarettes, uncomplicated; I25.2 Old myocardial infarction; Z68.27 Body mass index [BMI] 27.0-27.9, adult; Z79.899 Other long term (current) drug therapy; Z79.82 Long term (current) use of aspirin; Z71.6 Tobacco abuse counseling; Z95.810 Presence of automatic (implantable) cardiac defibrillator; Z85.9 Personal history of malignant neoplasm, unspecified
CPT/HCPCS: 36415; 71045; 80053; 82962; 83880; 84484; 85025; 87426; 93005; 94640; 94660; 96374; 99281; 99284; 99291; 99406; J1940; J2060; J2405

== ENCOUNTER → 2022-01-29 | Day surgery (SDC) | payer MEDICARE, MEDICAID ==
[~2022-01-29] MED LIST changes: +LIDOCAINE HCL/PF 1% 10 MG/ML 5ML VIAL ONE
== END | disposition home or self-care (01) ==
LOC: RADANGIO 07:32
PROVIDERS: ATTEND Podiatrist Foot & Ankle Surgery
DX: Z45.2 Encounter for adjustment and management of vascular access device (principal); Z79.82 Long term (current) use of aspirin; Z79.4 Long term (current) use of insulin; Z79.899 Other long term (current) drug therapy; Z72.89 Other problems related to lifestyle; Z98.890 Other specified postprocedural states; Z82.49 Family history of ischemic heart disease and other diseases of the circulatory system
CPT/HCPCS: 36573; C1725; J3490

== ENCOUNTER 2022-05-28 00:15 | Emergency (ER) | payer MEDICARE, MEDICAID ==
[~2022-05-28] VITALS: Ht 185.4 cm; Wt 94.0 kg
[~2022-05-28 00:15] MED LIST changes: -LIDOCAINE HCL/PF 1% 10 MG/ML 5ML VIAL ONE; +POTA-204 PO; -POTA20TA82 PO
[2022-05-28] MEDS ORDERED: MINERAL OIL ENEMA 133ML PR ONE (01:30)
[2022-05-28 01:41] LABS: BASOPHILS % 0.8 % (0.0-2.0); EOSINOPHILS % 0.9 % (0.0-5.0); HEMATOCRIT. 44.7 % (42.0-52.0); HEMOGLOBIN. 14.6 g/dL (14.0-18.0); LYMPHOCYTES % 18.1 % (20.0-50.0); MEAN CORPUSCULAR HEMOGLOBIN 27.3 pg (28.0-32.0); MEAN CORPUSCULAR VOLUME 83.9 fL (80.0-94.0); MEAN PLATELET VOLUME 8.8 fl (7.4-10.4); MONOCYTES % 10.4 % (2.0-8.0); NEUTROPHILS % 69.8 % (40.0-76.0); PLATELET 148 x1000/uL (130-400); RED BLOOD CELL COUNT 5.33 mill/uL (4.7-6.1); RED CELL DISTRIBUTION WIDTH 17.7 % (11.6-14.6)
[2022-05-28 01:46] LABS: CHLORIDE 110 mEq/L (98-107)
[2022-05-28] MEDS ORDERED: IPRATROPIUM BROMIDE (0.02%) 0.5MG/2.5ML NEB HHN NR (02:34)
[2022-05-28] MEDS ORDERED: ALBUTEROL (0.083%) 2.5MG/3ML NEB HHN NR (02:34)
[2022-05-28] MEDS ORDERED: FUROSEMIDE 40MG/4ML VIAL IV NR (02:45)
[2022-05-28] MEDS ORDERED: AZITHROMYCIN 500MG/250ML 250 ML IV NR (04:00)
[2022-05-28] MEDS ORDERED: CEFTRIAXONE 1 G PREMIX 50 ML IV NR (04:00)
[2022-05-28] MEDS ORDERED: FURO-151 MT (04:29)
[2022-05-28] MEDS ORDERED: DOXY100T2 MT (04:29)
[2022-05-28 04:30] VITALS: BP 143/86
[2022-05-28] MEDS ORDERED: MAGNESIUM HYDROXIDE 400MG/5ML 30ML UDC PO ONE (04:30)
[2022-05-28] MEDS ORDERED: LACTULOSE 20G/30ML UDC PO ONE (04:30)
== END 2022-05-28 05:01 | disposition home or self-care (01) ==
LOC: ER 00:15 → CANBEDREQ 05-29 06:22
DX: K59.00 Constipation, unspecified (principal); J18.9 Pneumonia, unspecified organism; I11.0 Hypertensive heart disease with heart failure; I50.9 Heart failure, unspecified; E11.9 Type 2 diabetes mellitus without complications; J44.9 Chronic obstructive pulmonary disease, unspecified; I25.10 Atherosclerotic heart disease of native coronary artery without angina pectoris; Z20.822 Contact with and (suspected) exposure to COVID-19; Z85.46 Personal history of malignant neoplasm of prostate; Z79.82 Long term (current) use of aspirin
CPT/HCPCS: 36415; 71045; 74176; 80053; 83605; 83690; 83880; 84484; 85025; 93005; 94640; 96374; 99285; J1940

== ENCOUNTER 2022-06-10 20:18 | Inpatient (IN) | payer MEDICARE, MEDICAID ==
[~2022-06-10] VITALS: Ht 182.9 cm; Wt 91.0 kg
[~2022-06-10 20:18] MED LIST changes: +DOXY100T2 MT; +FURO-151 MT
[2022-06-10] MEDS ORDERED: METHYLPREDNISOLONE SOD SUCC 125 MG/2 ML VIAL IV STA (20:58)
[2022-06-10] MEDS ORDERED: IPRATROPIUM BROMIDE (0.02%) 0.5MG/2.5ML NEB HHN STA (20:58)
[2022-06-10] MEDS ORDERED: ALBUTEROL (0.083%) 2.5MG/3ML NEB HHN STA (20:58)
[2022-06-10 21:16] LABS: BASOPHILS % 0.8 % (0.0-2.0); EOSINOPHILS % 1.4 % (0.0-5.0); HEMOGLOBIN. 13.9 g/dL (14.0-18.0); LYMPHOCYTES % 21.2 % (20.0-50.0); MEAN CORPUSCULAR HEMOGLOBIN 27.5 pg (28.0-32.0); MEAN CORPUSCULAR VOLUME 83.1 fL (80.0-94.0); MEAN PLATELET VOLUME 8.9 fl (7.4-10.4); MONOCYTES % 14.3 % (2.0-8.0); NEUTROPHILS % 62.3 % (40.0-76.0); PLATELET 157 x1000/uL (130-400); RED BLOOD CELL COUNT 5.05 mill/uL (4.7-6.1)
[2022-06-10 21:32] LABS: CHLORIDE 107 mEq/L (98-107)
[2022-06-10] MEDS ORDERED: PROPOFOL 10MG/ML 100ML 100 ML IV ONE (23:15)
[2022-06-10] MEDS ORDERED: ETOMIDATE 2MG/ML 10ML VIAL IV ONE (23:15)
[2022-06-10] MEDS ORDERED: ROCURONIUM BROMIDE 10MG/ML VIAL 5ML IV ONE (23:15)
[2022-06-11] MEDS ORDERED: METHYLPREDNISOLONE SOD SUCC 125 MG/2 ML VIAL IV NR (00:15)
[2022-06-11 02:00] VITALS: BP 125/63
[2022-06-11] MEDS ORDERED: ACETAMINOPHEN 325MG TABLET PO PRN (08:00)
[2022-06-11] MEDS ORDERED: FUROSEMIDE 40MG/4ML VIAL IVP SCH (08:00)
[2022-06-11] MEDS ORDERED: METHYLPREDNISOLONE SOD SUCC 40 MG/ML VIAL IV SCH (08:00)
[2022-06-11] MEDS ORDERED: ONDANSETRON HCL 4MG/2ML INJ IV PRN (08:00)
[2022-06-11] MEDS ORDERED: IPRATROPIUM/ALBUTEROL 0.5-3(2.5)MG/3ML NEB HHN SCH (12:00)
== END 2022-06-11 03:12 | disposition left against medical advice (07) | DRG 192 ==
LOC: ER 20:18 → MICUSO 22:36 → EDBEDREQ 22:47 → EDBEDREQTM 22:47
PROVIDERS: ADMIT Internal Medicine; ATTEND Internal Medicine
DX: J44.1 Chronic obstructive pulmonary disease with (acute) exacerbation (principal); I11.0 Hypertensive heart disease with heart failure; I50.9 Heart failure, unspecified; E11.9 Type 2 diabetes mellitus without complications; Z79.899 Other long term (current) drug therapy; Z85.46 Personal history of malignant neoplasm of prostate; Z53.29 Procedure and treatment not carried out because of patient's decision for other reasons
CPT/HCPCS: 36415; 36600; 71045; 80053; 82375; 82805; 83880; 84484; 85025; 93005; 94640; 96374; 99285; J1940; J2930; J3490

== ENCOUNTER 2022-07-02 16:53 | Emergency (ER) | payer MEDICARE, MEDICAID ==
[~2022-07-02] VITALS: Ht 188 cm; Wt 100.0 kg
[2022-07-02] MEDS ORDERED: IBUPROFEN 600MG TABLET PO ONE (18:30)
[2022-07-02 20:20] VITALS: BP 132/74
== END 2022-07-02 20:32 | disposition home or self-care (01) ==
LOC: ER 16:53
DX: S93.492A Sprain of other ligament of left ankle, initial encounter (principal); S39.012A Strain of muscle, fascia and tendon of lower back, initial encounter; W01.0XXA Fall on same level from slipping, tripping and stumbling without subsequent striking against object, initial encounter; Y93.9 Activity, unspecified; Y92.9 Unspecified place or not applicable; I11.0 Hypertensive heart disease with heart failure; I50.9 Heart failure, unspecified; E11.9 Type 2 diabetes mellitus without complications; Z79.4 Long term (current) use of insulin; Z92.3 Personal history of irradiation; Z95.0 Presence of cardiac pacemaker; Z79.82 Long term (current) use of aspirin; Z85.46 Personal history of malignant neoplasm of prostate
CPT/HCPCS: 72100; 73070; 73590; 73600; 99284

== ENCOUNTER 2023-03-30 06:52 | Emergency (ER) | payer MEDICARE, MEDICAID ==
[~2023-03-30] VITALS: Ht 188 cm; Wt 217.0 kg
[2023-03-30 07:05] VITALS: BP 106/67; PULSE 82; RESP 16; TEMP 97.5; O2SAT 97
== END 2023-03-30 08:22 | disposition home or self-care (01) ==
LOC: ER 06:52
DX: M79.645 Pain in left finger(s) (principal); I11.0 Hypertensive heart disease with heart failure; I50.9 Heart failure, unspecified; E11.9 Type 2 diabetes mellitus without complications; Z85.9 Personal history of malignant neoplasm, unspecified; Z79.899 Other long term (current) drug therapy
CPT/HCPCS: 99281